=== PATIENT | female | born 1975 | race Hispanic/Latino ===

== ENCOUNTER 2018-09-21 05:45 | Day surgery (SDC) | payer BC ==
[~2018-09-21] VITALS: Ht 162.6 cm; Wt 88.5 kg
[~2018-09-21 05:45] MED LIST: FISH OIL 1,0001 EAC5 PO; VITAMIN D32000 UNI1 PO
--- NOTE | 2018-09-21 10:02 | NUR ---
09/21/18 Sherice Castro 0943 PT ARRIVED ON 10 L VIA MASK, RESP EVEN AND UNLABORED. PT REACTIVE TO PAINFUL STIMULI. 0945 O2 DECREASED TO 6L VIA MASK. 0950 PT WAKES AND DENIES PAIN, MEDICAL ASSISTENT AT BEDSIDE FOR KHMER SPEAKING PT INTERPRETATION. 0953 PT WOKE AND IS TEARFUL, PT REORIENTED TO PACU AND PT DENIES NAUSEA AND PAIN. 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 PT REPORTS PAIN 5-6/10, PT ENCOURAGED TO DEEP BREATHE. EDUCAITON GIVEN ON PAIN MEDICATION AND BREATHING.
--- NOTE | 2018-09-21 10:36 | NUR ---
ICEMajor SOLORIO AND YEMI GIVEN. CALL LIGHT W/IN REACH. RECREATION LEADER, NANI PRESENT AND ASSISTING WITH TRANSLATION. FAMILY @ BS.
--- NOTE | 2018-09-21 11:42 | NUR ---
PATIENT REPORTS "A LITTLE" NAUSEA AFTER COMES TO THE NURSE'S STATION AND REPORTS "MY IS HAVING PAIN". PATIENT RATES HER PAIN 7/10. PRN GIVEN FOR PAIN AND NAUSEA. PATIENT ATE 95% OF JELLO. FAMILY REMAINS @ BS. MORE ICED WATER GIVEN. PATIENT REQUESTS CATHETER TO BE REMOVED. BALLOON DEFLATED FOR 10 ML AND ORTEGA CATHETER IS DC WNL. 600 ML BRIGHT, YELLOW URINE NOTED TO OVERNIGHT ORTEGA BACK. PATIENT TOLERATES THE DC OF CATHETER WELL. PATIENT REQUESTS TO GET UP AND USE THE BATHROOM.
--- NOTE | 2018-09-21 11:55 | NUR ---
PATIENT UP TO BATHROOM WITH ASSIST. PATIENT AMBULATES SLOW AND WELL AND DENIES DIZZINESS. PATIENT VOIDS SCANT AMOUNT OF BLOOD TINGED, BRIGHT YELLOW URINE AND IS BACK IN BED. SCDS IN PLACE. FAMILY REMAINS @ BS.
--- NOTE | 2018-09-21 13:07 | NUR ---
PATIENT RESTING QUIETLY W/EYES CLOSED. RR EVEN AND UNLABORED. FAMILY REMAINS @ BS. PATIENT DENIES ADD'L NEEDS @ THIS TIME.
[2018-09-21] MEDS ORDERED: MOTRIN IB200 MG PO (14:07)
[2018-09-21] MEDS ORDERED: NORCO 5-325 TA1 EACH PO (14:07)
--- NOTE | 2018-09-21 14:25 | NUR ---
PATIENT RESTING QUIETLY W/EYES CLOSED. RR EVEN AND UNLABORED. PATIENT OPENS EYES TO RN ENTERING THE ROOM. PATIENT DENIES ADD'L NEEDS @ THIS TIME.
--- NOTE | 2018-09-21 14:55 | NUR ---
PATIENT UP TO BATHROOM W/SPOUSE STANDBY. PATIENT VOIDS 600 ML ORANGE COLORED URINE. NANI CALLED FOR TRANSLATION ASSISTANCE.
--- NOTE | 2018-09-21 15:25 | NUR ---
SUZI 1505: NANI ARRIVES TO TRANSLATE DISCHARGE INSTRUCTIONS GIVEN IN PRESENCE OF FAMILY. PATIENT AND SPOUSE BOTH VERBALIZE UNDERSTANDING. PATIENT DRESSES HERSELF AND TRANSFERS HERSELF TO AND THEN TO PERSONAL VEHICLE AND TOLERATES THAT WELL.
--- NOTE | 2018-11-06 07:05 | OR ---
[facility] [address], [place] [address] Signed DATE OF OPERATION: 09/21/2018 SURGEON: Lula Rollins DO PREOPERATIVE DIAGNOSES: 1. Abnormal uterine bleeding. 2. Adenomyosis. POSTOPERATIVE DIAGNOSES: 1. Abnormal uterine bleeding. 2. Adenomyosis. 3. Pelvic adhesive disease. PROCEDURES PERFORMED: 1. Total laparoscopic hysterectomy. 2. Bilateral salpingectomy. 3. Cystoscopy. 4. Lysis of adhesions lasting approximately 20 minutes. PHYSICIAN [facility] [facility] SPORTS MEDICINE: Aramis Lewis MD. ANESTHESIA: General. ESTIMATED BLOOD LOSS: 50 mL. SPECIMENS: Uterus, tubes, and cervix. FINDINGS: Normal external genitalia, cervix and vagina. On laparoscopy, dense adhesions of the anterior abdominal wall and omentum to the lower uterine segment. Otherwise, normal uterus, tubes, and ovaries. Good hemostasis noted on the procedure. On cystoscopy, normal bladder with bilateral ureteral jets. COMPLICATIONS: None. Electronically Signed By: LULA ROLLINS DO 11/06/18 0705 PATIENT NAME: AZUCENA LONG OPERATIVE REPORT DATE OF : 77 REPORT #: [id number] PHYSICIAN: LULA ROLLINS DO PCP: NO PRIMARY CARE PHYSICIAN REPORT IS CONFIDENTIAL AND NOT TO BE RELEASED WITHOUT AUTHORIZATION [facility] [address], [place] [address] Signed INDICATIONS: Ms. Jack Osborne is a pleasant 43-year-old female who presents with abnormal uterine bleeding, dysmenorrhea, and suspected adenomyosis based on ultrasound. She has had 3 prior deliveries and underwent tubal ligation that with her last . Over the past 4 years, her pain and bleeding have been more severe. An EMB was normal and hemoglobin was 13.5. She is up-to-date on her Paps. The patient was consented for total laparoscopic hysterectomy, bilateral salpingectomy, and cystoscopy. TECHNIQUE: The patient was taken to the operating room where a time-out was performed to confirm correct patient, correct procedure. General anesthesia was adequately established. The patient was prepped and draped in the dorsal lithotomy position with her feet in Yellofin stirrups. ICPs were on and running, and no preoperative heparin was indicated. Ancef 2 g [facility] A weighted speculum was placed in the vagina and the anterior lip of the cervix was grasped with an Allis clamp. A VCare uterine manipulator was placed without difficulty. A Alan catheter was then inserted and the surgeon's gloves were changed, and attention was turned to the abdomen. The base of the umbilicus was infiltrated with 0.25% Marcaine with epinephrine and a 5 mm incision was made using a surgical scalpel. A 5 mm trocar was then placed in the peritoneal cavity under direct visualization without complication. Pneumoperitoneum was established and a camera was placed. Normal right upper quadrant was noted. However, an attention was turned to the pelvis. Dense omental adhesions were noted to the anterior abdominal wall and to the lower uterine segment. This was carefully examined and felt to be amenable to total laparoscopic hysterectomy. A 12 mm expanding port was placed in the right lower quadrant and a 5 mm assist port was placed in the left lower quadrant, both under direct visualization without complication. The omentum was carefully dissected from the anterior abdominal wall using the LigaSure bipolar device with dissection staying right against the anterior abdominal wall and careful observation to ensuring no loops of bowel were near the dissection site. Dissection went easily and normal anatomy was established. At this point, we proceeded with a straight forward total laparoscopic hysterectomy. The left tube was grasped at the fimbriated end, elevated and divided along the mesosalpinx, and resected near the cornua. It was removed via the 12 mm trocar and sent to Pathology. The left utero-ovarian ligament was then fulgurated and divided with good hemostasis. The left round ligament was fulgurated and divided after identifying the course of the ureter through the pelvis on the left. The anterior leaf of the broad ligament was fulgurated and divided, and brought down past the midline at the level of the vaginal cuff. In order to help deliniate the bladder given some scarring, the bladder was backfilled with sterile milk. Unfortunately, assisting RN infiltrated the milk through the balloon portion of the alan catheter causing the balloon to rupture in situ. When appropriate distention of the bladder was not noted, I went below to evaluate and noted the balloon rupture with the majority of balloon remaining in the bladder. A Electronically Signed By: LULA ROLLINS DO 11/06/18 0705 PATIENT NAME: AZUCENA LONG OPERATIVE REPORT DATE OF : 77 REPORT #: [id number] PHYSICIAN: LULA ROLLINS DO PCP: NO PRIMARY CARE PHYSICIAN REPORT IS CONFIDENTIAL AND NOT TO BE RELEASED WITHOUT AUTHORIZATION [facility] [address], [place] [address] Signed new alan was inserted, and sterile milk backfilled into the bladder (approx 300cc). Excellent visualization of the bladder and lower segment was appreciated easing the remainder of the bladder dissection, and the bladder pushed well below the cup. The bladder was then drained. Posterior leaf of the broad ligament was then divided to the left uterosacral ligament. The uterine vessels were identified, fulgurated, and divided with good hemostasis. The process was repeated on the right with the tube divided along the mesosalpinx. The right utero-ovarian ligament fulgurated and divided. The right round ligament fulgurated and divided, and the leaves of the broad ligament brought down easily. The bladder was pushed well below the vaginal cuff and her uterine vessels were fulgurated and divided with good hemostasis. The paracervical tissue was divided and cup was able to delineate the proposed colpotomy site. Once good hemostasis was appreciated, a Sonicision device was placed through the trocar and colpotomy was performed without difficulty. The uterus and cervix were delivered through the vagina, and sent to Pathology for further evaluation. A glove was stuffed with a wet lap and placed in the vagina to ensure pneumoperitoneum. The cuff was then reapproximated using the V-Loc suture and with the Endo Stitch device with careful attention to incorporate the uterosacral ligaments as well as the vaginal epithelium. Good cuff closure and apical support were appreciated. Good hemostasis was appreciated. The pelvis was irrigated and found to be hemostatic. The gas was slowly let down and no bleeding was noted with reduced pressures, and the trocars were removed and trocar sites were repaired with 4-0 Vicryl. Attention was turned to the cystoscopy. The new Alan catheter was removed and the cystoscope was placed into the urethral meatus, and advanced under direct visualization into the bladder. Normal urethra was noted. Inside the bladder, normal bladder with bilateral ureteral jets were noted. The prior remnants of the Alan balloon were noted and these were grasped with cystoscopic graspers, and removed with all portions of the Alan balloon noted for. The cystoscope was again replaced into the bladder and no additional debris was noted, and the cystoscope was then withdrawn. Alan catheter was reinserted and the patient was taken the PACU in good and stable condition. Sponge, needle, and instrument count were correct x2 at the end the procedure. Dr. Lewis was present and participated in all portions of procedure. Lula Rollins DO JDW/WILEYL Electronically Signed By: LULA ROLLINS DO 11/06/18 0705 PATIENT NAME: JACK OSBRONEAZUCENA OPERATIVE REPORT DATE OF : 77 REPORT #: [id number] PHYSICIAN: LULA ROLLINS DO PCP: NO PRIMARY CARE PHYSICIAN REPORT IS CONFIDENTIAL AND NOT TO BE RELEASED WITHOUT AUTHORIZATION [facility] [address] [place] [address] Randy Shabazz [id number] Signed /[id number] Copies: ~ Electronically Signed By: LULA ROLLINS DO 11/06/18 0705 PATIENT NAME: AZUCENA LONG OPERATIVE REPORT DATE OF : 77 REPORT #: [id number] PHYSICIAN: LULA ROLLINS DO PCP: NO PRIMARY CARE PHYSICIAN REPORT IS CONFIDENTIAL AND NOT TO BE RELEASED WITHOUT AUTHORIZATION
== END 2018-09-21 15:10 | disposition home or self-care (01) ==
LOC: DS 05:45
PROVIDERS: Obstetrics & Gynecology
PROC: 0UT94ZZ Resection of Uterus, Percutaneous Endoscopic Approach (ICD-10-PCS; principal; 2018-09-21 06:45)
PROC: 0UT74ZZ Resection of Bilateral Fallopian Tubes, Percutaneous Endoscopic Approach (ICD-10-PCS; 2018-09-21 06:45)
DX: D25.1 Intramural leiomyoma of uterus (principal); N88.8 Other specified noninflammatory disorders of cervix uteri; N80.0 Endometriosis of uterus; Z88.0 Allergy status to penicillin; Z79.899 Other long term (current) drug therapy
CPT/HCPCS: 00944; J0690; J1100; J1644; J1885; J2250; J2405; J2550; J2704; J2765; J3010; J7120